=== PATIENT | male | born 1955 ===

== ENCOUNTER 2022-04-06 15:44 | Emergency (ER) | payer OTHER, MEDICARE, SELFPAY ==
--- NOTE | ~2022-04-06 | XR_ITS ---
EXAMINATION: XR pelvis 1-2V DATE: 04/06/2022 16:49 INDICATION: Fall. TECHNIQUE: An anteroposterior view of the pelvis was obtained. COMPARISON: None. FINDINGS: Bone alignment is normal. No fracture. There is at least mild lumbar spondylosis. There is mild osteoarthritis of the hips. IMPRESSION: 1. Mild osteoarthritis of the hips. Reviewed, dictated and finalized at location A. 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
--- NOTE | ~2022-04-06 | CT_ITS ---
EXAMINATION: CT cervical spine wo con DATE: 04/06/2022 17:04 INDICATION: Fall TECHNIQUE: Computed tomography (CT) of the cervical spine was performed without intravenous contrast. Automated exposure control and iterative reconstruction technique were employed. The dose-length pro duct was 623.38 mGy-cm. COMPARISON: None. FINDINGS: Vertebral Body Alignment: Intact. . Craniocervical and atlantoaxial alignment: Moderate degenerative change. Alignment intact. Osseous structures/fracture: No evidence of a lytic or blastic process in the visualized spine. No e vidence of acute fracture. . Cervical soft tissues: The paraspinal soft tissues planes are maintained. Trace left mastoid fluid Degenerative changes: Degenerative changes, without severe neural foraminal or central canal narrowin g. IMPRESSION: No acute fracture or traumatic malalignment in the cervical spine. Reviewed, dictated and finalized at location K. 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
--- NOTE | ~2022-04-06 | XR_ITS ---
EXAMINATION: XR chest 1V DATE: 04/06/2022 16:49 INDICATION: Fall from wheelchair. TECHNIQUE: A single frontal view of the chest was obtained. COMPARISON: None. FINDINGS: The chest demonstrates clear lungs without pneumonia, pleural effusion, or pneumothorax. Th e heart size is normal. There are bilateral shoulder arthroplasties. IMPRESSION: 1. No acute cardiopulmonary disease. Reviewed, dictated and finalized at location A. INUOUS MINER
--- NOTE | ~2022-04-06 | CT_ITS ---
EXAMINATION: CT brain wo con DATE: 04/06/2022 16:36 INDICATION: Head injury. TECHNIQUE: Computed tomography (CT) of the head was performed without intravenous contrast. The mA wa s adjusted according to patient size. Iterative reconstruction technique was employed. The dose-lengt h product was 605.33 mGy-cm. COMPARISON: None FINDINGS: There is a hyperdense intraparenchymal hematoma in right temporal lobe with surrounding vas ogenic edema. There is encephalomalacia involving the right temporal lobe, right insula, and right ba natanael ganglia with low attenuation, foci of gas, and overlying craniotomy. There is no acute ischemic i nfarct or abnormal mass lesion. No midline shift. There are likely changes of ocular lens replacement surgeries. There is mild mucosal thickening in the paranasal sinuses. The mastoid air cells are norm al. IMPRESSION: 1. 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 By report, a large hematoma was evacuated in this area on 03/16/22. 2. Intraparenchymal hematoma in right temporal lobe and subarachnoid hemorrhage overlying right tempo ral lobe, likely acute/subacute. Comparison with outside imaging would be useful to determine whether these findings are stable or worsened. Reviewed, dictated and finalized at location A. N AMERICAN STUDIES PROFESSOR IMPRESSION: 1. Encephalomalacia in right temporal lobe, right insula, and right basal gangl ia with overlying craniotomy. By report, a large hematoma was evacuated in this area on 03/16/22. 2. Intraparenchymal hematoma in right temporal lobe and subarachnoid hemorrhage overlying right temporal lobe, likely acute/subacute. Comparison with outside imaging would be useful to determine whether these findings are stable or worse [place].
[2022-04-06 15:55] VITALS: BP 110/69; PULSE 105; RESP 14; TEMP 36.9; O2SAT 96
--- NOTE | 2022-04-06 16:14 | ECG_ITS ---
Measurements Intervals [place] Rate: 102 P: 40 OK: 174 QRS: 38 QRSD: 73 T: 74 QT: 332 QTc: 433 Interpretive Statements SINUS TACHYCARDIA LOW QRS VOLTAGE IN PRECORDIAL LEADS [QRS DEFLECTION < 1.0 mV IN CHEST LEADS] CANNOT RULE OUT SEPTAL INFARCTION ABNORMAL ECG NO PREVIOUS ECG AVAILABLE FOR COMPARISON Electronically Signed On 04-07-2022 10:02:55 REFRIGERATOR CABINETMAKER by Roosevelt Rojas M.D.
--- NOTE | 2022-04-06 16:18 | ED.GENADULT ---
HPI - General Adult General Chief complaint: Fall Stated complaint: FALL Time Seen by Provider: 04/06/22 15:49 History of Present Illness HPI narrative: this is a 66-year-old male with left-sided hemiparesis living at a [facility] presenting after a fall. The patient is trying to transfer to his wheelchair when he fell out and struck his head. He denies loss of consciousness. He denies any chest pain, difficulty breathing dizziness or prodrome before he fell. Patient says he fell because he can not move his left side. Patient denies chest pain, difficulty breathing, abdominal pain or urinary symptoms. He does have some pain in his right elbow Related Data Home Medications Medication Instructions Recorded Confirmed aspirin 81 mg tablet,delayed 81 mg PO DAILY 03/25/22 03/25/22 release atenolol 25 mg tablet 25 mg PO DAILY 03/25/22 03/25/22 cholecalciferol (vitamin D3) 50 50 mcg PO DAILY 03/25/22 03/25/22 mcg (2,000 unit) tablet (Vitamin D3) duloxetine 60 mg capsule,delayed 60 mg PO DAILY 03/25/22 03/25/22 release ertugliflozin 15 mg tablet 15 mg PO DAILY 03/25/22 03/25/22 (Steglatro) fexofenadine 180 mg tablet 180 mg PO DAILY 03/25/22 03/25/22 insulin degludec 200 unit/mL (3 30 unit subcut QPM 03/25/22 03/25/22 mL) subcutaneous pen (Tresiba FlexTouch U-200 insulin) losartan 25 mg tablet 25 mg PO DAILY 03/25/22 03/25/22 metformin 500 mg tablet,extended 1,000 mg PO BID 03/25/22 03/25/22 release 24 hr rosuvastatin 40 mg tablet 40 mg PO DAILY 03/25/22 03/25/22 sitagliptin phosphate 100 mg 100 mg PO DAILY 03/25/22 03/25/22 tablet (Januvia) Allergies Allergy/AdvReac Type Severity Reaction Status Date / Time No Known Allergies Allergy Verified 04/06/22 15:59 Review of Systems Review of Systems: All systems reviewed & are unremarkable except as noted in HPI and below PMFSH Past Medical History Medical History Anxiety Depression Diabetes mellitus with hyperglycemia Hemiparesis Hyperlipidemia Hypertension Insomnia Spontaneous intraparenchymal intracranial hemorrhage, acute Surgical History Surgical History H/O shoulder surgery Status post craniotomy Social History Social History Smoking status: Unknown if ever smoked Second hand tobacco smoke exposure: No Exam Narrative: APPEARANCE: No apparent distress. Head: bruise over the left forehead EYES: Unable to cross midline to the left NOSE: Atraumatic NECK: Trachea midline, midline cervical tenderness RESPIRATORY: No increased rate of breathing, clear to auscultation bilaterally CARDIOVASCULAR: RRR, no peripheral edema ABDOMINAL: Non-distended soft tender no guarding rebound MUSCULOSKELETAl: No obvious deformities NEURO: Alert. left-sided hemiparesis and facial droop, Patient has a lateral gaze palsy and cannot cross midline to the left. Loss of visual connell on the left side. SKIN:: Warm, dry. Normal color PSYCHIATRIC: Normal affect Course Vital Signs Vital signs: Vital Signs Temperature 98.4 F 04/06/22 15:55 Pulse Rate 105 H 04/06/22 15:55 Respiratory Rate 14 04/06/22 15:55 Blood Pressure 110/69 04/06/22 15:55 Pulse Oximetry 96 04/06/22 15:55 Temperature 98.4 F 04/06/22 15:55 Pulse Rate 92 04/06/22 19:27 Respiratory Rate 18 04/06/22 19:27 Blood Pressure 100/48 L 04/06/22 19:27 Pulse Oximetry 96 04/06/22 19:27 Medical Decision Making [facility] Narrative Medical decision making narrative: -Presentation: 66-year-old male with left-sided hemiparesis presenting to ED after a fall from wheelchair. patient has abnormal vital signs and is tachycardic. Metabolic workup will be ordered. -DDX includes but is not limited to: Intracranial hemorrhage, cervical fracture, viral illness, pneumonia, metabolic cause of fall -
[2022-04-06 16:28] LABS: Glucose Point of Care 161 mg/dl (65-105)
[2022-04-06 16:35] LABS: Basophils Percent Auto 0.3 % (0.2-1.2); Eosinophils Absolute Auto 0.1 K/mm3 (0-0.3); Eosinophils Percent Auto 1.2 % (0-4.4); Hematocrit 45.1 % (42.0-52.0); Hemoglobin 15.6 g/dL (14.0-18.0); Immature Granulocyte Absolute 0.02 K/mm3 (0.00-0.031); Immature Granulocyte Percent A 0.3 % (0-0.5); Lymphocytes Absolute Auto 0.97 K/mm3 (0.9-3.2); Lymphocytes Percent Auto 16.4 % (18.3-44.2); Mean Corpuscular HGB Conc 34.6 g/dl (32-36); Mean Corpuscular Hemoglobin 31.3 pg (26-34); Mean Corpuscular Volume 90.6 fl (80-100); Mean Platelet Volume 9.8 fl (7.4-10.4); Monocytes Absolute Auto 0.9 K/mm3 (0.1-0.6); Monocytes Percent Auto 15.2 % (2.6-8.5); Neutrophils Absolute Auto 3.9 K/mm3 (1.3-6.7); Neutrophils Percent Auto 66.6 % (45.5-73.1); Platelet Count Result 203 k/mm3 (150-375); Red Blood Count 4.98 M/mm3 (4.6-6.20); Red Cell Distribution Width 14.8 % (11.5-14.5); White Blood Count 5.9 K/mm3 (4.5-10.0)
[2022-04-06 16:45] LABS: Partial Thromboplastin Time 29.3 SECONDS (22.3-36.8)
[2022-04-06] MEDS: SODIUM CHLORIDE 0.9% IV 1,000 ML 999 ML IV CONT (16:51)
[2022-04-06] MEDS: ACETAMINOPHEN 500 MG TABLET 1000 MG PO (16:51)
[2022-04-06 17:12] LABS: Influenza A QL RT-PCR Negative (Negative); Influenza B QL RT-PCR Negative (Negative); RSV RNA, RT-PCR Negative (Negative); SARS-CoV-2 RNA PCR Negative
[2022-04-06 17:51] LABS: Alanine Aminotransferase 44 U/L (6-50); Albumin Level 3.1 g/dL (3.5-5.1); Alkaline Phosphatase 139 U/L (38-126); Anion Gap 7 mmol/L (8-16); Aspartate Amino Transferase 51 U/L (17-59); Bilirubin,Total 0.6 mg/dL (0.2-1.3); Blood Urea Nitrogen 19 mg/dL (9-20); Calcium 8.5 mg/dL (8.4-10.2); Carbon Dioxide 27 mmol/L (22-30); Chloride 98 mmol/L (98-107); Creatine Kinase 51 U/L (55-170); Estimated CRCL calculation 84 ml/min; Estimated Glomerular Filt Rate > 60; Glucose 155 mg/dL (65-110); Lipase 195 U/L (23-300); Magnesium 1.5 mg/dL (1.6-2.3); Potassium 4.1 mmol/L (3.4-5.0); Sodium 132 mmol/L (137-145)
[2022-04-06 18:38] VITALS: BP 104/67; PULSE 94; RESP 18; O2SAT 96
[2022-04-06 19:27] VITALS: BP 100/48; PULSE 92; RESP 18; O2SAT 96
[2022-04-06 19:55] LABS: Appearance Urine Clear (Clear); Bilirubin Urine Negative (Negative); Blood Urine Trace-lysed (Negative); Color Urine Yellow (Yellow); Glucose Urine UA 3+ mg/dL (Negative); Ketones Urine 1+ mg/dL (Negative); Leukocyte Esterase Ur Negative LEU/UL (Negative); Nitrate Urine Negative (Negative); Protein Urine Negative (Negative); Urobilinogen Urine 0.2 mg/dL (<2.0); pH Urine 5.5 (5.0-9.0)
[2022-04-06 20:07] LABS: Mucus Urine Rare /lpf; RBC Urine 0-2 /hpf (0-2); WBC Urine 0-3 /hpf
[2022-04-06 20:10] LABS: Add Urine Microscopic? YES
--- NOTE | 2022-04-06 20:45 | PC.NURSE ---
Report called to [facility].
[2022-04-06 20:46] VITALS: BP 116/88; PULSE 84; RESP 18; O2SAT 98
[2022-04-06 22:10] VITALS: BP 124/83; PULSE 84; RESP 18; O2SAT 99
== END 2022-04-06 22:30 ==
PROVIDERS: Emergency Provider Emergency Medicine
DX: I60.9 Nontraumatic subarachnoid hemorrhage, unspecified (principal); G81.94 Hemiplegia, unspecified affecting left nondominant side; Z20.822 Contact with and (suspected) exposure to COVID-19; F41.9 Anxiety disorder, unspecified; F32.9 Major depressive disorder, single episode, unspecified; E11.9 Type 2 diabetes mellitus without complications; Z79.4 Long term (current) use of insulin; I10 Essential (primary) hypertension; W07.XXXA Fall from chair, initial encounter
CPT/HCPCS: 36415; 70450; 71045; 72125; 72170; 80053; 81001; 82550; 82948; 83690; 83735; 85025; 85610; 85730; 87637; 93005; 96360; 99284; A9270; J7030